=== PATIENT | female | born 1955 | race Caucasian/White ===

== ENCOUNTER 2022-10-14 22:57 | Emergency (ER) | payer MEDICARE, SELFPAY ==
[2022-10-14 23:29] VITALS: BP 157/76; PULSE 72; TEMP 36.7; O2SAT 98; BMI 27.7
--- NOTE | 2022-10-14 23:36 | ED.GENADULT ---
HPI - General Adult General Chief complaint: Dizziness Stated complaint: High bp Time Seen by Provider: 10/14/22 23:36 Source: patient and family Mode of arrival: ambulatory Limitations: no limitations History of Present Illness HPI narrative: Patient with no significant past medical history history of vertigo a few years ago came here for sudden onset of vertiginous feeling started at 19:30 felt everything is spinning around with nausea was dull off balance no fall had mild headache for last few hours no speech problem no focal deficit no chest pain or palpitation no ringing in the ear Related Data Previous Rx's Medication Instructions Recorded meclizine 25 mg tablet 25 mg PO TID PRN dizziness #20 tabs 10/15/22 Allergies Allergy/AdvReac Type Severity Reaction Status Date / Time No Known Allergies Allergy Verified 10/14/22 23:43 Review of Systems Review of Systems: Yes all other systems are reviewed and are negative [facility] Social History Social History Alcohol intake: never Smoked in Last 30 Days: No Use of substances other than those prescribed or required for medical reasons: No Advance Directives: No Advance Directives Information Provided: No Physical Exam ED Vital Signs: Vital Signs - 24 hr 10/14/22 23:29 10/14/22 23:38 Temperature 98.0 F 97.4 F Pulse Rate 72 68 Respiratory Rate 18 Blood Pressure 157/76 H 166/81 H Pulse Oximetry 98 98 Oxygen Delivery Method Room Air Room Air BMI result Body Mass Index 27.7 Appearance: Alert. Oriented X3. No acute distress. Eyes: PERRLA, No Nystagmus increased dizziness on turning the head to the right side [place] Hallpike maneuver positive ENT: Pharynx normal. Oral Mucosa moist Neck: Normal inspection. Neck supple. CVS: Normal heart rate and rhythm. Pulses normal. Respiratory: No respiratory distress. Equal air entry bilateral, no wheezing/rales/rhonchi Abdomen: Soft and nontender. Bowel sounds are present, no mass palpable, no CVA tenderness Skin: Skin warm and dry. Normal skin color. Normal skin turgor. Extremities: No lower extremity edema. No calf tenderness Neuro: Oriented X 3. No motor deficit. No sensory deficit.No cerebellar signs , cranial nerves II-XII intact Medications Administered Discontinued Medications Generic Name Dose Route Start Last Admin Trade Name Freq PRN Reason Stop Dose Admin Meclizine HCl 25 mg 10/14/22 23:43 10/14/22 23:56 Meclizine Hcl 25 Mg Tablet PO 10/14/22 23:44 25 mg ONCE ONE Administration Ondansetron HCl 4 mg 10/14/22 23:43 10/14/22 23:56 Ondansetron Odt 4 Mg Tab.Li REISU 10/14/22 23:44 4 mg ONCE ONE Administration Medical Decision Making Medical Decision Making [facility] Narrative: Patient clinically with benign positional vertigo no central system involvement will check basic labs and give meclizine and Zofran 1235am patient feeling much better now blood pressure improved to 140/70 able to ambulate dizziness has improved with discharge patient home on meclizine labs are stable Lab Data [facility] Lab Attestation statement: I reviewed the patient's lab results. 10/14/22 23:51 10/14/22 23:51 Labs: Lab Results 10/14/22 10/14/22 Range/Units 23:51 23:51 WBC 8.9 (4.8-10.8) X10*3/uL RBC 3.96 L (4.20-5.50) X10*6/uL Hgb 12.1 (12.0-16.0) g/dl Hct 36.7 L (37.0-47.0) % MCV 92.7 (80.0-98.0) fL MCH 30.6 (27.0-33.0) pg MCHC 33.0 (31.0-35.0) g/dl RDW 12.1 (11.0-16.0) % Plt Count 288 (160-400) X10*3/uL MPV 9.9 (9.4-12.3) fL Immature Gran % (Auto) 0.3 (0.0-0.4) % Neut % (Auto) 85.8 H (45-73) % Lymph % (Auto) 10.5 L (20-40) % [place] % (Auto) 3.1 (2-11) % Eos % (Auto) 0.1 (0-4) % Baso % (Auto) 0.2 (0-2) % Lymph # (Auto) 0.9 L (1.2-4.9) X10*3/uL [place] # (Auto) 0.3 (0.1-1.2) X10*3/uL Eos # (Auto) 0.0 (0.0-0.4) X10*3/uL Baso # (Auto) 0.0 (0.0-0.2) X10*3/uL Abs Immat Gran (auto) 0.03 (0.00-0.03) X10*3/uL Absolute Neuts (auto) 7.7 (2.0-8.3) x10*3/uL Absolute Nucleated RBC 0.000 (0.0-0.012) X10*3/uL Nucleated RBC % (auto) 0.0 (0.0-0.2) /100WBC Sodium 140 (135-145) mmol/L Potassium 4.0 (3.3-5.1) mmol/L Chloride 107 (96-108) mmol/L Carbon Dioxide 22 (22-29) mmol/L Anion Gap 15 (12-20) BUN 17 H (9-16) mg/dL Creatinine 0.67 (0.5-1.4) mg/dL Estim Creat Clear Calc 67.3 Estimated GFR > 60 Random Glucose 186 H (60-115) mg/dL Calcium 9.4 (8.4-10.2) mg/dL Magnesium 1.9 (1.6-2.6) mg/dL Independent Interpretation I performed an independent interpretation of an: EKG Interpretation: Normal sinus rhythm heart rate 69 beats per minute normal interval normal axis no acute ST T wave changes no acute ischemia Discharge Plan Discharge Clinical Impression: Benign paroxysmal positional vertigo Patient Disposition: Home, Self-Care Instructions: Benign Paroxysmal Positional Vertigo (ED) Additional Instructions: Care and cautions as advised Meclizine for dizziness as needed every 8 hours Follow with PCP if not better Prescriptions: New meclizine 25 mg tablet 25 mg PO TID PRN (Reason: dizziness) Qty: 20 0RF
[2022-10-14 23:38] VITALS: BP 166/81; PULSE 68; RESP 18; TEMP 36.3; O2SAT 98
== END 2022-10-15 00:38 | disposition home or self-care (01) ==
PROVIDERS: Emergency Provider Internal Medicine
DX: H81.10 Benign paroxysmal vertigo, unspecified ear (principal)
CPT/HCPCS: 36415; 80048; 83735; 85025; 93005; 99283; 99285

== ENCOUNTER 2022-12-20 09:46 | Emergency (ER) | payer MEDICARE, SELFPAY ==
[2022-12-20 09:57] VITALS: BP 143/71; PULSE 84; RESP 19; TEMP 36.6; O2SAT 98; BMI 27.1
--- NOTE | 2022-12-20 11:15 | ED_ITS ---
HPI - Back Pain/Injury General Chief Complaint: Back Pain/Injury Stated Complaint: L side pain Time Seen by Provider: 12/20/22 10:50 Source: patient Mode of arrival: ambulatory Limitations: no limitations History of Present Illness HPI Narrative: Patient is a 67 year old female who presents to the ED due to left lower back pain. She has a PMH of osteoporosis, diabetes, HTN, hypercholesterolemia. and sciatica. She explains that on Thursday, 12/17, she was carrying a heavy bag to her friends house. On , 12/18, she started to experience left lower back pain that radiates down to her knee. She has taken Tylenol 500 mg and applied icy hot to the affected area, which did not alleviate her symptoms. She reports that the pain feels similar to the sciatica that she experienced before. She states the pain is worse when standing or walking and better when laying down. She denies decreased sensation or weakness in her lower extremities bilaterally and no urinary incontinence. She reports no weight loss or drinking any alcohol or using any illicit drugs. Related Data Previous Rx's Medication Instructions Recorded meclizine 25 mg tablet 25 mg PO TID PRN dizziness #20 tabs 10/15/22 cyclobenzaprine 10 mg tablet 10 mg PO TID PRN muscle spasm #15 12/20/22 tabs lidocaine 5 % topical patch 1 patch topical DAILY #15 ea 12/20/22 (Lidoderm) naproxen 500 mg tablet 500 mg PO BID PRN pain #30 tabs 12/20/22 Allergies Allergy/AdvReac Type Severity Reaction Status Date / Time No Known Allergies Allergy Verified 12/20/22 09:57 Review of Systems Review of Systems: Yes all other systems are reviewed and are negative Constitutional: Constitutional: Reports no additional constitutional complaints, Denies chills and Denies fever(s) Eyes: Eyes: Reports no additional eye complaints and Denies change in vision ENT: Reports system reviewed and no additional complaints, except as document ed, Denies dizziness, Denies nasal congestion, Denies nasal discharge and Denies neck pain Cardiovascular: Cardiovascular: Reports no additional cardiovascular complaints, Denies chest pain, Denies leg edema and Denies dyspnea Respiratory: Respiratory: Reports no additional respiratory complaints, Denies cough and Denies dyspnea Gastrointestinal: Gastrointestinal: Reports no additional gastrointestinal complaints, Denies abdominal pain, Denies diarrhea, Denies nausea and Denies vomiting Genitourinary: Genitourinary: Reports no additional female genitourinary complaints and Denies urinary incontinence Musculoskeletal: Musculoskeletal: Reports no additional musculoskeletal complaints, Reports back pain, Denies arthralgias, Denies joint swelling, Denies neck pain, Denies numbness, Reports radiating pain into limb and Denies tingling Integumentary/Breasts: Skin/Breast: Reports system reviewed and no additional complaints, except as docu and Denies rash Neurologic: Reports system reviewed and no additional complaints, except as documented, Denies Abnormal speech present, Denies dizziness, Denies numbness and Denies tingling PMFSH Past Medical History Attestation statement: The following information was validated with the patient. Source: old records reviewed and nursing notes reviewed Social History Social History Alcohol intake: never Advance Directives: No Advance Directives Information Provided: Yes Physical Exam Vital Signs: Vital Signs: Last Vital Signs Temp 98 F 12/20/22 09:57 Pulse 84 12/20/22 09:57 Resp 19 12/20/22 09:57 BP 143/71 H 12/20/22 09:57 Pulse Ox 98 12/20/22 09:57 O2 Del Method Room Air 12/20/22 09:57 BMI result Body Mass Index 27.1 Const: General: cooperative, healthy appearing, comfortable and no acute distress Orientation/consciousness: patient oriented x3 Limitations: no limitations HEENT: Head: Yes normal to inspection Ears: hearing grossly normal bilaterally General nose exam: Normal external nose present Face and sinus: Yes normal facial exam Mouth: Normal oral and palatal mucosa present Throat: Yes posterior oropharynx normal Eyes: General: appearance normal, both eyes and all related structures Pupils: Equal, round and reactive pupils present Neck: Neck: Yes normal visual inspection Chest: Chest palpation & inspection: normal inspection of the chest Resp: Effort & Inspection: normal respiratory effort Auscultation: clear to auscultation bilaterally Cardio: Rate: regular rate Rhythm: regular rhythm Peripheral pulses: Peripheral pulses 2+ throughout GI: Inspection: Yes normal to inspection Palpation (GI): Soft to palpation and nontender Auscultation: normal bowel sounds Back/Spine/Pelvis: Other: there is tenderness the lumbar soft tissue with no midline tenderness, step- offs deformities. There is pain with left straight leg raise. There is no CVA tenderness. Pain is worsened with flexion and extension of the lumbar spine Thoracic/Lumbar Spine: thoracic and lumbar spine normal to inspection Skin: General skin exam: no rashes or lesions noted Neuro: General: patient oriented x3, no focal motor deficits and normal sensation to monofilament Cranial nerves: Yes CN's II-XII intact bilaterally, Yes Equal, round and reactive pupils present, Yes Bilaterally intact EOM present, Yes Nystagmus not present, Yes Normal facial strength present and Yes Midline tongue present Cognition (Neuro): normal cognition Speech: No Abnormal speech present Gait exam (Neuro): Normal gait present Motor exam (neuro): 5/5 motor strength present throughout Sensory Exam: Normal double simultaneous stimulation for sensation Deep tendon reflexes (DTR's): Right patellar reflex intensity grade: 2+ and Left patellar reflex intensity grade: 2+ Extrem: General: Yes normal to inspection Medical Decision Making Medical Decision Making MDM Narrative: Patient is a 67 year old female who presents to the ED due to left lower back pain. She has a PMH of osteoporosis, diabetes, HTN, hypercholesterolemia. and sciatica. She explains that on Thursday, 12/17, she was carrying a heavy bag to her friends house. On , 12/18, she started to experience left lower back pain that radiates down to her knee. She has taken Tylenol 500 mg and applied icy hot to the affected area, which did not alleviate her symptoms. She reports that the pain feels similar to the sciatica that she experienced before. She states the pain is worse when standing or walking and better when laying down. She denies decreased sensation or weakness in her lower extremities bilaterally and no urinary incontinence. She reports no weight loss or drinking any alcohol or using any illicit drugs. exam patient has tenderness the lumbar soft tissue left thigh with no midline tenderness, step-offs deformities. This is worsened with left straight leg raise and flexion extension of the lumbar spine. Patient has a normal neurological exam with no red flag symptoms or neurological deficits. Likely lumbar radiculopathy patient will be treated with NSAIDs, muscle relaxant, medicated patches with recommendations to follow-up with primary care doctor for any persistent symptoms. We did review worrisome signs and symptoms of when to return to the emergency room with the patient and seismic interpreter. She is comfortable plan for discharge home. Differential Diagnosis Differential Diagnoses: The differential diagnosis associated with the presentation includes Lumbar radiculopathy Disc herniation Muscle strain Cauda Equina/cord compression-no neuro deficits or red flag symptoms to suggest Malignancy-no reports of weight loss, night sweats, cancer history to suggest epidural abscess-no reports of IVDA, immunocompromised state, h/o lumbar surgery or hardware to suggest AAA-gradual onset, less likely Admission/Observation Consideration of admission/observation: Escalation of care including admission/observation considered back pain with normal neuro exam, no need for additional imaging, consultation, admission External Record Review External record reviewed: Prior outpatient labs normal renal function Tests considered The following testing was considered but not selected: normal neuro exam with no focal neurological findings are red flag symptoms. No need for emergent MRI No fall or concern for fracture with need for x-ray Prescription Management I considered prescription management with: Pain Medication see discussion above Discharge Plan Discharge Clinical Impression: Lumbar radiculopathy Patient Disposition: Home, Self-Care Instructions: Lumbar Radiculopathy (ED) Additional Instructions: heat or ice Gentle stretching No heavy lifting or bending Follow-up with primary care doctor next week for continued symptoms Return for incontinence of urine or stool, fever, weakness in the leg calor o hielo Estiramiento suave Sin levantar objetos pesados ??ni agacharse Seguimiento con el m?dico de atenci?n primaria la pr?xima semana si los s?ntomas contin?an Regreso por incontinencia de orina o heces, fiebre, debilidad en la pierna. Prescriptions: New cyclobenzaprine 10 mg tablet 10 mg PO TID PRN (Reason: muscle spasm) Qty: 15 0RF naproxen 500 mg tablet 500 mg PO BID PRN (Reason: pain) Qty: 30 0RF lidocaine [Lidoderm] 5 % adhesive patch,medicated 1 patch topical DAILY Qty: 15 0RF Rx Instructions: leave on most painful area for up to 12 hrs No Action meclizine 25 mg tablet 25 mg PO TID PRN (Reason: dizziness) Qty: 20 0RF Referrals: Physician,Unknown J [Primary Care Provider] - 1 week Interventions: ED Discharge Assessment Last Done: 12/20/22 11:29 Discharge Date/Time: 12/20/22 11:30 Print Language: Setswana
== END 2022-12-20 11:30 | disposition home or self-care (01) ==
PROVIDERS: Emergency Provider Emergency Medicine
DX: M54.16 Radiculopathy, lumbar region (principal); M54.50 Low back pain, unspecified; E11.9 Type 2 diabetes mellitus without complications; I10 Essential (primary) hypertension; E78.00 Pure hypercholesterolemia, unspecified; Z79.899 Other long term (current) drug therapy
CPT/HCPCS: 99282; 99283